=== PATIENT | male | born 1980 | race Caucasian/White ===

== ENCOUNTER 2019-12-16 09:07 | Emergency (ER) | payer BC ==
[~2019-12-16] VITALS: Ht 182.9 cm; Wt 102.1 kg
[2019-12-16 09:35] LABS: URINE BILIRUBIN NEGATIVE (Negative); URINE BLOOD 2+ (Negative); URINE CLARITY CLEAR; URINE COLOR YELLOW; URINE GLUCOSE-RANDOM NEGATIVE (Negative); URINE KETONES NEGATIVE (Negative); URINE LEUKOCYTES-REFLEX NEGATIVE (Negative); URINE NITRITE-REFLEX NEGATIVE (Negative); URINE PROTEIN NEGATIVE (Negative); URINE UROBILINOGEN 0.2 E.U./dl (0.2-1.0)
[2019-12-16 09:52] LABS: URINE RBC 3-10 Few /HPF (0-2); URINE WBC-REFLEX 0-5 Rare /HPF (0-5)
[2019-12-16 09:53] LABS: BACTERIA-REFLEX 1-9 Few /HPF (None Seen); CASTS None Seen /LPF (None Seen); CRYSTALS None Seen /LPF (None Seen); MUCUS None Seen strn/LPF (None Seen); SQUAMOUS NONE SEEN /LPF (0-3)
[2019-12-16 10:09] LABS: CALCIUM 9.1 mg/dL (8.5-10.1); CREATININE 1.2 mg/dL (0.6-1.3); POTASSIUM 4.1 mmol/L (3.5-5.1)
[2019-12-16] MEDS ORDERED: FLOMAX0.4 MG PO (10:11)
[2019-12-16] MEDS ORDERED: IBUPROFEN 800800 M1 PO (10:11)
[2019-12-16] MEDS ORDERED: NORCO 5-325 TA1 EAC1 PO (10:11)
[2019-12-16] MEDS ORDERED: ZOFRAN ODT4 MG DISSOLVE (10:11)
[2019-12-16] MEDS ORDERED: KEFLEX500 M1 PO (10:11)
[2019-12-16 10:24] VITALS: BP 151/94
== END 2019-12-16 10:24 | disposition home or self-care (01) ==
LOC: M.ERS 09:07
PROVIDERS: Emergency Medicine Emergency Medical Services
DX: N20.0 Calculus of kidney (principal)